=== PATIENT | male | born 1955 ===

== ENCOUNTER 2024-08-29 06:14 | Day surgery (SDC) | payer MEDICARE, BC, SELFPAY ==
[2024-08-29 08:00] VITALS: BMI 37.3
[2024-08-29 08:02] VITALS: BP 177/96
[2024-08-29 08:11] VITALS: BMI 37.3
[2024-08-29 08:12] VITALS: BMI 37.3
[2024-08-29 08:41] LABS: Glucose - Point of Care 126 mg/dl (70-99)
[2024-08-29 09:56] VITALS: BP 125/75
[2024-08-29 10:00] VITALS: BP 127/81
[2024-08-29 10:15] VITALS: BP 135/86
== END 2024-08-29 10:25 | disposition home or self-care (01) ==
LOC: GI 06:14
PROVIDERS: ATTENDING PHYSICIAN Internal Medicine Gastroenterology
DX: K22.89 Other specified disease of esophagus (principal); I85.00 Esophageal varices without bleeding; K76.6 Portal hypertension; Z13.810 Encounter for screening for upper gastrointestinal disorder
CPT/HCPCS: 43235; 82962